=== PATIENT | female | born 1940 | race Caucasian/White ===

== ENCOUNTER 2023-09-06 15:31 | Inpatient (IN) ==
[2023-09-06] MEDS: LEVOFLOXACIN 750 MG/150 ML BAG IV ONE (17:52)
[2023-09-06 17:56] LABS: Basophils # (Auto) 0.05 K/mcL (0.00-0.30); Basophils % (Auto) 0.3 % (0.0-2.0); Eosinophils # (Auto) 0 K/mcL (0.00-0.70); Eosinophils % (Auto) 0 % (0.0-7.0); Hematocrit 31.7 % (34.1-44.9); Lymphocytes # (Auto) 0.48 K/mcL (1.50-4.80); Lymphocytes % (Auto) 3.2 % (15.5-49.0); Mean Cell Volume 93.5 fL (80.0-100.0); Mean Corpuscular HGB Conc 31.5 g/dL (31.0-36.0); Mean Platelet Volume 11.6 fL (8.8-12.5); Monocytes % (Auto) 5.3 % (1.0-12.0); Neutrophils % (Auto) 90.7 % (38.0-78.0); Platelet Count 161 K/mcL (140-440); RBC 3.39 M/mcL (3.59-5.38); Red Cell Distribution Width 13.7 % (11.5-14.5)
[2023-09-06 18:10] LABS: ALT/SGPT 23 U/L (<40); AST/SGOT 28 U/L (<32); Albumin 4.1 gm/dL (3.2-5.2); Albumin/Globulin Ratio 1.5 (1.0-2.3); Alkaline Phosphatase 60 U/L (39-117); Bilirubin,Total 0.6 mg/dL (0.1-1.0); Blood Urea Nitrogen 31 mg/dL (8-23); Calcium 9.7 mg/dL (8.6-10.4); Carbon Dioxide 23 mmol/L (22-30); Chloride 93 mmol/L (96-108); Globulin 2.7 gm/dL (2.2-3.7); Glomerular Filtration Rate 26; Glucose 184 mg/dL (70-105)
[2023-09-06] MEDS: 0.9 % SODIUM CHLORIDE 1,000 ML IV ONE (18:13)
[2023-09-06] MEDS ORDERED: DEXTROSE 31 GM ORAL.SUSP PO PRN (21:13)
[2023-09-06] MEDS ORDERED: LABETALOL HCL 20 MG/4 ML VIAL IV PRN (21:13)
[2023-09-06] MEDS ORDERED: POLYETHYLENE GLYCOL 3350 17 GM PACKET PO PRN (21:13)
[2023-09-06] MEDS ORDERED: SENNOSIDES 1 TABLET PO PRN (21:13)
[2023-09-06] MEDS ORDERED: DEXTROSE 50% 50 ML VIAL IV PRN (21:13)
[2023-09-06] MEDS ORDERED: POTASSIUM CHLORIDE 20 MEQ TABLET PO PRN (21:13)
[2023-09-06] MEDS ORDERED: POTASSIUM CHLORIDE 40 MEQ in DEXTROSE 5% IN WATER 500 ML IV PRN (21:13)
[2023-09-06] MEDS ORDERED: IPRATROPIUM/ALBUTEROL 3 ML AMPUL.NEB NEB PRN (21:13)
[2023-09-06] MEDS ORDERED: ONDANSETRON 4 MG/2 ML VIAL IV PRN (21:13)
[2023-09-06] MEDS ORDERED: MAGNESIUM SULFATE 2 GM/50 ML BAG IV PRN (21:13)
[2023-09-06] MEDS: 0.9 % SODIUM CHLORIDE 10 ML SYRINGE IV SCH (22:32)
[2023-09-06] MEDS: methylPREDNISolone SOD SUCC 40 MG/ML VIAL IV ONE (22:45)
[2023-09-06] MEDS: traZODone HCL 50 MG TABLET PO PRN (22:45)
[2023-09-06] MEDS: 0.9 % SODIUM CHLORIDE 1,000 ML IV SCH (22:45)
[2023-09-06] MEDS: traZODone HCL 50 MG TABLET ONE (22:45)
[2023-09-06] MEDS: DOCUSATE SODIUM 100 MG CAPSULE PO SCH (22:46)
[2023-09-06] MEDS: INSULIN LISPRO 1 UNIT/0.01 ML UNIT SQ SCH (23:03)
[2023-09-07 06:23] LABS: Basophils # (Auto) 0.03 K/mcL (0.00-0.30); Basophils % (Auto) 0.2 % (0.0-2.0); Eosinophils # (Auto) 0 K/mcL (0.00-0.70); Eosinophils % (Auto) 0 % (0.0-7.0); Hematocrit 28.6 % (34.1-44.9); Hemoglobin 8.8 g/dL (11.2-15.7); Lymphocytes # (Auto) 0.34 K/mcL (1.50-4.80); Lymphocytes % (Auto) 2.8 % (15.5-49.0); Mean Cell Volume 97.3 fL (80.0-100.0); Mean Corpuscular HGB Conc 30.8 g/dL (31.0-36.0); Mean Platelet Volume 11.4 fL (8.8-12.5); Monocytes % (Auto) 2.5 % (1.0-12.0); Neutrophils % (Auto) 93.6 % (38.0-78.0); Platelet Count 130 K/mcL (140-440); RBC 2.94 M/mcL (3.59-5.38); Red Cell Distribution Width 13.7 % (11.5-14.5); WBC 12.1 K/mcL (4.5-11.0)
[2023-09-07 06:42] LABS: ALT/SGPT 22 U/L (<40); AST/SGOT 27 U/L (<32); Albumin 3.4 gm/dL (3.2-5.2); Albumin/Globulin Ratio 1.6 (1.0-2.3); Alkaline Phosphatase 50 U/L (39-117); Bilirubin,Direct < 0.2 mg/dL (0-0.3); Bilirubin,Total 0.4 mg/dL (0.1-1.0); Blood Urea Nitrogen 32 mg/dL (8-23); Calcium 8.2 mg/dL (8.6-10.4); Carbon Dioxide 21 mmol/L (22-30); Chloride 95 mmol/L (96-108); Globulin 2.1 gm/dL (2.2-3.7); Glomerular Filtration Rate 26; Glucose 340 mg/dL (70-105); Lactate Dehydrogenase 337 U/L (135-225); Phosphorous 3.9 mg/dL (2.5-4.5); Triglycerides 101 mg/dL (<150); Uric Acid 7.5 mg/dL (2.5-8.0)
[2023-09-07] MEDS: LEVOTHYROXINE 50 MCG TABLET PO SCH (08:55)
[2023-09-07] MEDS: TIMOLOL 0.5% OPHTH DROPS BOTTLE 5ML OU SCH (08:55)
[2023-09-07] MEDS: amLODIPine 5 MG TABLET PO SCH (08:55)
[2023-09-07] MEDS: predniSONE 20 MG TABLET PO SCH (08:55)
[2023-09-07] MEDS: INSULIN LISPRO 1 UNIT/0.01 ML UNIT SQ ONE (08:55)
[2023-09-07] MEDS: ENOXAPARIN 30 MG/0.3 ML SYRINGE SQ SCH (08:56)
[2023-09-07] MEDS ORDERED: DEXTROSE 31 GM ORAL.SUSP PO PRN (11:08)
[2023-09-07] MEDS ORDERED: DEXTROSE 50% 50 ML VIAL IV PRN (11:08)
[2023-09-07] MEDS: INSULIN LISPRO 1 UNIT/0.01 ML UNIT SQ SCH ×2 (12:17→14:21)
[2023-09-07] MEDS ORDERED: DEXTROSE 50% 50 ML SYRINGE IV PRN (14:15)
[2023-09-07] MEDS: predniSONE 1 MG TABLET PO SCH (14:30)
[2023-09-07] MEDS: ACETAMINOPHEN 325 MG TABLET PO PRN (15:56)
[2023-09-07] MEDS: CARVEDILOL 12.5 MG TABLET PO SCH (16:39)
[2023-09-07] MEDS: SIMVASTATIN 10 MG TABLET PO SCH (22:40)
[2023-09-07] MEDS: LATANOPROST OPHTH DROPS 2.5ML BOTTLE OU SCH (22:40)
[2023-09-08 06:03] LABS: Basophils # (Auto) 0.02 K/mcL (0.00-0.30); Basophils % (Auto) 0.1 % (0.0-2.0); Eosinophils # (Auto) 0 K/mcL (0.00-0.70); Eosinophils % (Auto) 0 % (0.0-7.0); Hematocrit 28.7 % (34.1-44.9); Hemoglobin 9.2 g/dL (11.2-15.7); Lymphocytes # (Auto) 0.66 K/mcL (1.50-4.80); Lymphocytes % (Auto) 4.6 % (15.5-49.0); Mean Cell Volume 92.9 fL (80.0-100.0); Mean Corpuscular HGB Conc 32.1 g/dL (31.0-36.0); Mean Platelet Volume 11.5 fL (8.8-12.5); Monocytes # (Auto) 0.96 K/mcL (0.10-0.90); Monocytes % (Auto) 6.6 % (1.0-12.0); Neutrophils % (Auto) 87.3 % (38.0-78.0); Platelet Count 149 K/mcL (140-440); RBC 3.09 M/mcL (3.59-5.38); Red Cell Distribution Width 13.6 % (11.5-14.5); WBC 14.5 K/mcL (4.5-11.0)
[2023-09-08 06:49] LABS: ALT/SGPT 29 U/L (<40); AST/SGOT 32 U/L (<32); Albumin 3.5 gm/dL (3.2-5.2); Albumin/Globulin Ratio 1.6 (1.0-2.3); Alkaline Phosphatase 48 U/L (39-117); Bilirubin,Direct < 0.2 mg/dL (0-0.3); Bilirubin,Total 0.3 mg/dL (0.1-1.0); Blood Urea Nitrogen 32 mg/dL (8-23); Calcium 8.5 mg/dL (8.6-10.4); Carbon Dioxide 24 mmol/L (22-30); Chloride 99 mmol/L (96-108); Globulin 2.2 gm/dL (2.2-3.7); Glomerular Filtration Rate 30; Glucose 84 mg/dL (70-105); Lactate Dehydrogenase 359 U/L (135-225); Phosphorous 3.1 mg/dL (2.5-4.5); Triglycerides 73 mg/dL (<150); Uric Acid 7.4 mg/dL (2.5-8.0)
[2023-09-08] MEDS: INSULIN LISPRO 1 UNIT/0.01 ML UNIT SQ SCH (07:59)
[2023-09-08] MEDS: LEVOFLOXACIN 750 MG/150 ML BAG IV SCH (08:58)
[2023-09-08 09:04] LABS: Band Neutrophils % 13 % (0-10); Lymphocytes % 2 % (15-49); Metamyelocytes % 1 %; Monocytes % (Manual) 5 % (1-12); Ovalocytes OCC (None Seen); Platelet Estimate NORMAL (Normal); RBC Morphology ABNORMAL (Normal); Segmented Neutrophils % 79 % (38-78)
[2023-09-08] MEDS: POTASSIUM CHLORIDE 20 MEQ TABLET PO PRN (11:48)
[2023-09-08 17:15] LABS: Hemoglobin A1C 11.7 % Hgb (4.0-6.0)
[2023-09-09 06:26] LABS: Hematocrit 33.8 % (34.1-44.9); Hemoglobin 10.3 g/dL (11.2-15.7); Mean Cell Volume 97.4 fL (80.0-100.0); Mean Corpuscular HGB Conc 30.5 g/dL (31.0-36.0); Mean Platelet Volume 11.1 fL (8.8-12.5); Platelet Count 153 K/mcL (140-440); RBC 3.47 M/mcL (3.59-5.38); Red Cell Distribution Width 13.8 % (11.5-14.5)
[2023-09-09 06:50] LABS: ALT/SGPT 24 U/L (<40); AST/SGOT 32 U/L (<32); Albumin 3.6 gm/dL (3.2-5.2); Albumin/Globulin Ratio 1.5 (1.0-2.3); Alkaline Phosphatase 52 U/L (39-117); Bilirubin,Direct < 0.2 mg/dL (0-0.3); Bilirubin,Total 0.3 mg/dL (0.1-1.0); Blood Urea Nitrogen 26 mg/dL (8-23); Calcium 8.6 mg/dL (8.6-10.4); Carbon Dioxide 21 mmol/L (22-30); Chloride 99 mmol/L (96-108); Globulin 2.4 gm/dL (2.2-3.7); Glomerular Filtration Rate 35; Glucose 180 mg/dL (70-105); Lactate Dehydrogenase 416 U/L (135-225); Phosphorous 2.4 mg/dL (2.5-4.5); Triglycerides 126 mg/dL (<150); Uric Acid 5.8 mg/dL (2.5-8.0)
[2023-09-09 06:51] LABS: Band Neutrophils % 5 % (0-10); Lymphocytes % 5 % (15-49); Monocytes % (Manual) 5 % (1-12); Ovalocytes OCC (None Seen); Platelet Estimate NORMAL (Normal); RBC Morphology ABNORMAL (Normal); Segmented Neutrophils % 85 % (38-78)
[2023-09-09] MEDS: LABETALOL 5 MG/ML ML IV PRN (08:31)
[2023-09-09] MEDS: INSULIN GLARGINE, HUMAN 1 UNIT/0.01 ML SQ SCH (08:32)
[2023-09-09] MEDS ORDERED: DIAZEPAM 5 MG TABLET PO PRN (09:14)
[2023-09-09] MEDS: DIAZEPAM 2 MG TABLET PO PRN (10:47)
[2023-09-09] MEDS: INSULIN LISPRO 1 UNIT/0.01 ML UNIT SQ SCH (11:51)
== END 2023-09-09 13:24 | DRG 871 ==
LOC: ED 15:31 → MEDSUR 21:05
PROVIDERS: ADMIT Internal Medicine; ATTEND Internal Medicine